=== PATIENT | female | born 1995 | race Caucasian/White ===

== ENCOUNTER 2023-06-25 15:55 | Outpatient (CLI) | payer OTHER | END 2023-06-25 15:56 | disposition home or self-care (01) | LOC: NAV RAD 15:55 | PROVIDERS: ATTEND Family Medicine | DX: M25.561 Pain in right knee (principal) ==

== ENCOUNTER 2023-10-01 04:24 | Emergency (ER) | payer OTHER | END 2023-10-01 05:42 | disposition home or self-care (01) | LOC: NAV ERS 04:24 | DX: B34.9 Viral infection, unspecified (principal) | CPT/HCPCS: 87804; 99283 ==

== ENCOUNTER 2023-11-05 09:59 | Emergency (ER) | payer OTHER ==
[2023-11-05 10:36] LABS: Bilirubin Negative (Negative); Blood, Urine Small (Negative); Clarity Clear (Clear); Glucose, Urine (Dipstick) Negative (Negative); Ketone, Urine Negative (Negative); Leukocyte Large (Negative); Nitrite Negative (Negative); Protein, Urine (Dipstick) Negative (Neg-Trace); Urobilinogen 0.2 mg/dL (Less than 2)
[2023-11-05 10:41] LABS: Specific Gravity, Urine 1.015 (1.002-1.036)
[2023-11-05 10:45] LABS: Bacteria/HPF 1+ HPF (None Seen); CAUTI Indications for Culture Dysuria,urgency,freq; WBC/HPF Greater than 50 HPF (0-3)
[2023-11-05 10:46] LABS: Urine Culture Reflex Yes Yes
[2023-11-05 11:02] LABS: Pregnancy Test - Urine (BHCG) Negative (Negative)
[2023-11-05 11:03] LABS: Pregu Control Background? CLEAR/WHITE (CLR/WHITE); Pregu Control Bar Appear? YES (CONTROL BAR); Specific Gravity 1.015 (1.002-1.036)
[2023-11-05] MEDS ORDERED: Cephalexin 250 MG CAP ONE (11:25)
== END 2023-11-05 11:33 | disposition home or self-care (01) ==
LOC: NAV ERS 09:59
DX: N30.00 Acute cystitis without hematuria (principal)
CPT/HCPCS: 81001; 81025; 87077; 87086; 87186; 99283